=== PATIENT | female | born 1995 | race African-American/Black ===

== ENCOUNTER 2016-08-19 14:54 | Emergency (ER) | payer SELFPAY ==
--- NOTE | 2016-08-19 15:09 | ER Document Report ---
ED Medical Screen (RME) - General Stated Complaint: VAGINAL DISCOMFORT Notes: 21 yo female c/o vaginal discharge, itching x 3 days. TRAVEL OUTSIDE OF THE [place] IN LAST 30 DAYS: No - Related Data Allergies/Adverse Reactions: No Known Allergies Allergy (Verified 04/26/15 11:23) Past Medical History - Immunizations Immunizations up to date: Yes Hx Diphtheria, Pertussis, Tetanus Vaccination: Yes Physical Exam - Vital signs Vitals: Temp Pulse Resp BP Pulse Ox 98.1 F 91 16 128/77 H 100 08/19/16 15:04 08/19/16 15:04 08/19/16 15:04 08/19/16 15:04 08/19/16 15:04 Course - Vital Signs Vital signs: Temp Pulse Resp BP Pulse Ox 98.1 F 91 16 128/77 H 100 08/19/16 15:04 08/19/16 15:04 08/19/16 15:04 08/19/16 15:04 08/19/16 15:04
--- NOTE | 2016-08-19 16:50 | ER Document Report ---
HPI - HPI Patient complains to provider of: vaginal discharge Onset: Other - 3 days Onset/Duration: Gradual Quality of pain: Burning Pain Level: 4 Context: Patient complains of vaginal itching, burning and discharge for the past 3 days. Patient is concerned she may have a vaginal yeast infection. Patient attempted to use [id number] yeast medication 2 days ago without improvement of her symptoms. Patient denies any urinary symptoms. Patient denies any concerns about sexually transmitted infection. Associated Symptoms: Other - Vaginal Discharge Exacerbated by: Denies Relieved by: Denies Similar symptoms previously: Yes Recently seen / treated by doctor: No - ROS ROS below otherwise negative: Yes Systems Reviewed and Negative: Yes All other systems reviewed and negative - CONSTITUTIONAL Constitutional: DENIES: Fever, Chills - GASTROINTESTINAL Gastrointestinal: DENIES: Abdominal Pain, Nausea, Patient vomiting - URINARY Urinary: DENIES: Dysuria - REPRODUCTIVE Reproductive: REPORTS: Abnormal bleeding / discharge. DENIES: : - MUSCULOSKELETAL Musculoskeletal: DENIES: Back Pain - DERM Skin Color: Normal Skin Problems: None Past Medical History - General Information source: Patient Last Menstrual Period: 08/17/2016 - Social History Smoking Status: Never Smoker Chew tobacco use (# tins/day): No Frequency of alcohol use: None Drug Abuse: None Occupation: clinical quality analyst Family History: None, Reviewed & Not Pertinent Patient has suicidal ideation: No Patient has homicidal ideation: No - Medical History Medical History: Negative Renal/ Medical History: Denies: Hx Peritoneal Dialysis Surgical Hx: Negative - Immunizations Immunizations up to date: Yes Hx Diphtheria, Pertussis, Tetanus Vaccination: Yes Vertical Provider Document - CONSTITUTIONAL Agree With Documented VS: Yes Exam Limitations: No Limitations General Appearance: WD/WN, No Apparent Distress - INFECTION CONTROL TRAVEL OUTSIDE OF THE [place] IN LAST 30 DAYS: No - HEENT HEENT: Atraumatic, Normocephalic - NECK Neck: Normal Inspection, Supple - RESPIRATORY Respiratory: Breath Sounds Normal, No Respiratory Distress, Chest Non-Tender O2 Sat by Pulse Oximetry: 100 - CARDIOVASCULAR Cardiovascular: Regular Rate, Regular Rhythm, No Murmur - GI/ABDOMEN Gastrointestinal: Abdomen Soft - REPRODUCTIVE Female Genitalia: negative: CMT, Adnexal Pain-Right, Adnexal Pain-Left Notes: Patient with small amount of vaginal bleeding and white adherent clumps and vaginal vault. When asked if patient has been using anything intravaginally, patient states that she had used an [id number] vaginal yeast cream 2 days ago. - BACK Back: Normal Inspection. negative: CVA Tenderness-Right, CVA Tenderness-Left - MUSCULOSKELETAL/EXTREMETIES Musculoskeletal/Extremeties: DOMITILA KEVIN - NEURO Level of Consciousness: Awake, Alert, Appropriate Motor/Sensory: No Motor Deficit - DERM Integumentary: Warm, Dry, No Rash Course - Vital Signs Vital signs: Temp Pulse Resp BP Pulse Ox 98.1 F 91 16 128/77 H 100 08/19/16 15:04 08/19/16 15:04 08/19/16 15:04 08/19/16 15:04 08/19/16 15:04 - Laboratory Laboratory results interpreted by me: 08/19/16 18:20 Labs- Entire Visit 08/19/16 17:40 Bacteria (Wet Prep) 3+ BACTERIA SEEN Trichomonas (Wet Prep) NO TRICHOMONAS SEEN Vaginal WBC 1+ WBCS SEEN Vaginal RBC 1+ RBCS SEEN Vaginal Yeast YEAST SEEN 08/19/16 19:43 Discharge - Discharge Clinical Impression: Vagina, candidiasis Condition: Stable Disposition: HOME, SELF-CARE Instructions: Vaginal Yeast Infection ([facility]) Additional Instructions: Return immediately for any new or worsening symptoms Followup with your primary care provider, call tomorrow to make a followup appointment Prescriptions: Naproxen [Naprosyn 250 Nmg Tablet] 1 tab PO BID #14 tablet Forms: Return to Work Referrals: [facility] CLAROS MD [Primary Care Provider] - Follow up as needed
[2016-08-19] MEDS ORDERED: FLUCONAZOLE 100 MG TABLET PO ONE (18:18)
[2016-08-19] MEDS ORDERED: IBUPROFEN 800 MG TABLET PO ONE (18:20)
[2016-08-19 19:20] VITALS: BP 120/70
[2016-08-19 19:29] LABS: CHLAM PCR NOT DETECTED (NOT DETECT)
== END 2016-08-19 19:07 | disposition home or self-care (01) ==
LOC: ER 14:54
DX: B37.3 Candidiasis of vulva and vagina (principal)
CPT/HCPCS: 87210; 87491; 87591; 99283

== ENCOUNTER 2016-09-28 18:30 | Emergency (ER) | payer SELFPAY ==
[2016-09-28] MEDS ORDERED: PREDNISONE 20 MG TABLET PO ONE (18:54)
[2016-09-28] MEDS ORDERED: ACETAMINOPHEN 325 MG TABLET PO ONE (18:54)
--- NOTE | 2016-09-28 19:02 | ER Document Report ---
ED Medical Screen (RME) - General Chief Complaint: Sore Throat Stated Complaint: SORE THROAT Mode of Arrival: Ambulatory Information source: Patient Notes: 21-year-old female presents to the emergency department complaining of fever and sore throat over the last 2 days. Reports history of frequent strep throats but usually is not this severe. Denies difficulty breathing, chest pain , nausea or vomiting. I have greeted and performed a rapid initial assessment of this patient. A comprehensive ED assessment and evaluation of the patient, analysis of test results and completion of the medical decision making process will be conducted by additional ED providers. TRAVEL OUTSIDE OF THE [place] IN LAST 30 DAYS: No - Related Data Allergies/Adverse Reactions: No Known Allergies Allergy (Verified 09/28/16 18:56) Past Medical History - Social History Chew tobacco use (# tins/day): No Frequency of alcohol use: Occasional Drug Abuse: None Renal/ Medical History: Denies: Hx Peritoneal Dialysis - Immunizations Immunizations up to date: Yes Hx Diphtheria, Pertussis, Tetanus Vaccination: Yes Physical Exam - Vital signs Vitals: Temp Pulse Resp BP Pulse Ox 103.1 F H 122 H 20 136/82 H 100 09/28/16 18:51 09/28/16 18:51 09/28/16 18:51 09/28/16 18:51 09/28/16 18:51 - HEENT Pharynx: Erythema, Exudate, Tonsillar hypertrophy Course - Vital Signs Vital signs: Temp Pulse Resp BP Pulse Ox 103.1 F H 122 H 20 136/82 H 100 09/28/16 18:51 09/28/16 18:51 09/28/16 18:51 09/28/16 18:51 09/28/16 18:51
[2016-09-28] MEDS ORDERED: DEXAMETHASONE 4 MG TABLET PO ONE (22:22)
[2016-09-28] MEDS ORDERED: LIDOCAINE 2% VISCOUS SOLN 20 ML UDCUP PO ONE (22:22)
--- NOTE | 2016-09-28 22:22 | ER Document Report ---
ED ENT - General Mode of Arrival: Ambulatory Information source: Patient TRAVEL OUTSIDE OF THE [place] IN LAST 30 DAYS: No - HPI Patient complains to provider of: Throat problem Onset: Yesterday Location of pain: Throat Associated symptoms: Other - see above - General Chief Complaint: Sore Throat Stated Complaint: SORE THROAT Notes: 21 year old female with history of strep throat presents to the ED complaining of a sore throat that started yesterday. Patient states that this feels like strep throat, but worse. Patient's father states that she hasn't been resting lately and that could be contributing to her symptoms. Patient is additionally complaining of pain with swallowing, fever, malaise, and rhinorrhea. Patient denies history of mono. (BRIDGET NAVA) - Related Data Allergies/Adverse Reactions: No Known Allergies Allergy (Verified 09/28/16 18:56) Past Medical History - General Information source: Patient - Social History Smoking Status: Never Smoker Chew tobacco use (# tins/day): No Frequency of alcohol use: Occasional Drug Abuse: None Family History: Reviewed & Not Pertinent Patient has suicidal ideation: No Patient has homicidal ideation: No EENT Medical History: Reports: Throat - strep Renal/ Medical History: Denies: Hx Peritoneal Dialysis Surgical Hx: Negative - Immunizations Immunizations up to date: Yes Hx Diphtheria, Pertussis, Tetanus Vaccination: Yes Review of Systems - Review of Systems Constitutional: See HPI, Fever, Malaise EENT: See HPI, Nose discharge, Throat pain, Difficulty swallowing - pain with swallowing Cardiovascular: No symptoms reported Respiratory: No symptoms reported Gastrointestinal: No symptoms reported Genitourinary: No symptoms reported Female Genitourinary: No symptoms reported Musculoskeletal: No symptoms reported Skin: No symptoms reported Hematologic/Lymphatic: No symptoms reported Neurological/Psychological: No symptoms reported -: Yes All other systems reviewed and negative Physical Exam - Vital signs Interpretation: Tachycardic, Febrile - General General appearance: Alert In distress: None - HEENT Head: Normocephalic, Atraumatic Eyes: Normal Extraocular movements intact: Yes Pupils: PERRL Pharynx: Erythema - tonsils, Exudate - tonsils, Other - large erythematous tonsils with exudate. No: Normal - Respiratory Respiratory status: No respiratory distress Breath sounds: Normal - Cardiovascular Rhythm: Regular, Tachycardia Heart sounds: Normal auscultation - Abdominal Inspection: Normal - Back Back: Normal - Extremities General upper extremity: Normal inspection, Normal ROM General lower extremity: Normal inspection, Normal ROM - Neurological Neuro grossly intact: Yes Cognition: Normal Orientation: AAOx4 Shayan Coma Scale Eye Opening: Spontaneous Shayan Coma Scale Verbal: Oriented Shayan Coma Scale Motor: Obeys Commands [place] Coma Scale Total: 15 Speech: Normal - Psychological Associated symptoms: Normal affect, Normal mood - Skin Skin Temperature: Warm Skin Moisture: Dry Skin Color: Normal Course - Re-evaluation Re-evalutation: 09/29/16 Patient with sore throat erythema and exudate. Rapid strep negative. Patient has been very tired. Symptoms consistent with mono. Patient was given steroids , viscous lidocaine, and antipyretics. Given spleen precautions. Stable for discharge home. Taking by mouth. (ROSA CHEN) - Vital Signs Vital signs: Temp Pulse Resp BP Pulse Ox 99.0 F 81 20 118/65 96 09/28/16 22:53 09/28/16 22:53 09/28/16 18:51 09/28/16 22:53 09/28/16 22:55 (BRIDGET NAAV) (ROSA CHEN) Discharge - Discharge Clinical Impression: Sore throat, Mononucleosis Condition: Stable Disposition: HOME, SELF-CARE Instructions: Sore Throat ([facility]), Mononucleosis ([facility]) Prescriptions: Lidocaine HCl [Xylocaine 2% Viscous Soln 20 ml Udcup] 15 ml PO TIDP PRN #1 udc PRN Reason: Forms: Return to School, Return to Work Referrals: [facility] CLAROS MD [Primary Care Provider] - Follow up in 3-5 days Scribe Attestation: 09/29/16 08:17 I personally performed the services described in the documentation, reviewed and edited the documentation which was dictated to the scribe in my presence, and it accurately records my words and actions. (ROSA CHEN) Scribe Documentation - Scribe Written by Aroldoe:: Santa Espino, 09/28/2016 2904 acting as scribe for :: Shavon
[2016-09-28 22:55] VITALS: BP 118/65
== END 2016-09-28 23:00 | disposition home or self-care (01) ==
LOC: ER 18:30
DX: J02.9 Acute pharyngitis, unspecified (principal); B27.90 Infectious mononucleosis, unspecified without complication; R50.9 Fever, unspecified; R53.81 Other malaise; R00.0 Tachycardia, unspecified
CPT/HCPCS: 99283; 87070; 87880; 87804; J3490; J7512

== ENCOUNTER 2016-10-05 14:53 | Emergency (ER) | payer SELFPAY ==
--- NOTE | 2016-10-05 15:13 | ER Document Report ---
ED Medical Screen (RME) - General Stated Complaint: EYE IRRITATION Mode of Arrival: Ambulatory Information source: Patient Notes: 21 y/o F presents to ED c/o right eye redness, itching, drainage, and eyelid swelling. Pt reports wears contact lens but does not sleep with them. I have greeted and performed a rapid initial assessment of this patient. A comprehensive ED assessment and evaluation of the patient, analysis of test results and completion of the medical decision making process will be conducted by additional ED providers. TRAVEL OUTSIDE OF THE [place] IN LAST 30 DAYS: No - Related Data Allergies/Adverse Reactions: No Known Allergies Allergy (Verified 10/05/16 15:11) Past Medical History Renal/ Medical History: Denies: Hx Peritoneal Dialysis - Immunizations Immunizations up to date: Yes Hx Diphtheria, Pertussis, Tetanus Vaccination: Yes Physical Exam - Vital signs Vitals: Temp Pulse Resp BP Pulse Ox 98.2 F 87 16 131/79 H 99 10/05/16 15:08 10/05/16 15:08 10/05/16 15:08 10/05/16 15:08 10/05/16 15:08 - General General appearance: Appears well, Alert In distress: None - Respiratory Respiratory status: No respiratory distress Course - Vital Signs Vital signs: Temp Pulse Resp BP Pulse Ox 98.2 F 87 16 131/79 H 99 10/05/16 15:08 10/05/16 15:08 10/05/16 15:08 10/05/16 15:08 10/05/16 15:08
[2016-10-05] MEDS ORDERED: TETRACAINE HCL 0.5% OPH SOLN 2 ML ONE (16:55)
[2016-10-05] MEDS ORDERED: GENTAMICIN SULFATE 0.3% OPH SOLN 5 ML OD ONE (17:16)
--- NOTE | 2016-10-05 17:16 | ER Document Report ---
ED Eye Complaint - General Chief Complaint: Eye Pain Stated Complaint: EYE IRRITATION Time seen by provider: 17:11 Mode of Arrival: Ambulatory Information source: Patient Notes: 21-year-old female presents with an itchy, irritated right red eye. Patient is a contact lens wearer and she stopped using her contact lens 3 days ago. She states that she has been exposed to someone with pink eye. She's been getting crustiness in the morning. She denies any visual changes. TRAVEL OUTSIDE OF THE [place] IN LAST 30 DAYS: No - HPI Onset: Yesterday Eye location: Right Injury: No Occurred at: Home Quality of pain: No pain, Other Severity: Mild - Itchy Exposure: No: Alkaline chemical, Acidic chemical, Unknown chemical, Direct trauma, Projectile, Broken glass, Conjunctivitis, Welding arc, Tanning [place], Other Safety glasses worn: No Contact lenses worn: Yes Associated symptoms: Itching, Redness - Related Data Allergies/Adverse Reactions: No Known Allergies Allergy (Verified 10/05/16 15:11) Past Medical History - General Information source: Patient - Social History Smoking Status: Never Smoker Cigarette use (# per day): No Chew tobacco use (# tins/day): No Frequency of alcohol use: None Drug Abuse: None Lives with: Family Family History: Reviewed & Not Pertinent Patient has suicidal ideation: No Patient has homicidal ideation: No - Medical History Medical History: Negative Renal/ Medical History: Denies: Hx Peritoneal Dialysis Surgical Hx: Negative - Immunizations Immunizations up to date: Yes Hx Diphtheria, Pertussis, Tetanus Vaccination: Yes Review of Systems - Review of Systems Notes: Review of systems: Constitutional: Denies fever, chills. EENT: Denies ear pain, sinus tenderness, throat pain, throat swelling. See H&P for eye symptoms. Cardiovascular: Denies chest pain, palpitations, dyspnea or edema. Respiratory: Denies wheezing, cough, hemoptysis. Abdomen: Denies abdominal pain, nausea, vomiting, diarrhea. Denies BRBPR or melena. Genitourinary: Denies dysuria, pyuria, hematuria, flank pain. Musculoskeletal: denies joint pain or swelling, denies back pain. Skin: Denies rash, lesions. Physical Exam - Vital signs Vitals: Temp Pulse Resp BP Pulse Ox 98.2 F 87 16 131/79 H 99 10/05/16 15:08 02/27/17 15:08 10/05/16 15:08 10/05/16 15:08 10/05/16 15:08 Interpretation: Normal Notes: Physical exam: GENERAL: 21-year-old female, alert and oriented 3, no acute distress HEAD: Atraumatic, normocephalic. EYES: Right eye: Pupils equally round and reactive to light, right conjunctiva injected. Flourescene: No uptake Anterior chamber: No cells or flare ENT: TMs normal, nares patent, oropharynx clear without exudates. Moist mucous membranes. NECK: Normal range of motion, supple without lymphadenopathy PSYCH: Normal mood, normal affect. SKIN: Warm, Dry, normal turgor, no rashes or lesions noted. - HEENT Visual acuity- Right eye: 20/20 Visual acuity- Left eye: 20/20 Visual acuity- Both eyes: 20/25 Corrective lenses worn: Yes Course - Vital Signs Vital signs: Temp Pulse Resp BP Pulse Ox 98 F 82 18 127/76 H 99 10/05/16 18:05 10/05/16 18:05 10/05/16 18:05 10/05/16 18:05 10/05/16 18:05 Discharge - Discharge Clinical Impression: conjunctivitis Condition: Stable Disposition: HOME, SELF-CARE Instructions: Conjunctivitis ([facility]), Oral Narcotic Medication ([facility]) Additional Instructions: Recommendations: As we discussed: Throat [id number] contacts. Do not wear any new contacts until this infection is healed. Take the gentamicin drops 4 times daily. Take the Percocet as prescribed: See the narcotic instruction sheet. Can use warm soaks to the eye (or you could try cool compresses). Follow-up with your eye doctor: Call the office tomorrow. Return to the emergency room for any worsening redness, changes in vision or any concerns he getting worse. Prescriptions: Oxycodone HCl/Acetaminophen [Percocet 5-325 mg Tablet] 1 - 2 tab PO ASDIR PRN # 15 tablet PRN Reason: Forms: Return to Work Referrals: [facility] CLAROS MD [Primary Care Provider] - Follow up as needed
[2016-10-05] MEDS ORDERED: TETRACAINE HCL 0.5% OPH SOLN 2 ML OD ONE (17:17)
[2016-10-05 18:13] VITALS: BP 127/76
== END 2016-10-05 18:06 | disposition home or self-care (01) ==
LOC: ER 14:53
DX: H10.9 Unspecified conjunctivitis (principal); H57.11 Ocular pain, right eye
CPT/HCPCS: 99283; J3490

== ENCOUNTER 2018-11-06 11:22 | Emergency (ER) | payer MEDICAID ==
--- NOTE | 2018-11-06 12:56 | ER Document Report ---
ED Skin Rash/Insect Bite/Abscs - General Chief Complaint: Rash Stated Complaint: RASH Time Seen by Provider: 11/06/18 12:36 Primary Care Provider: LUH CLAROS MD [ACTIVE STAFF] - Follow up as needed Mode of Arrival: Ambulatory Information source: Patient Notes: 23-year-old female presented to ED for complaint of itchy rash to the right abdomen and back does not cross the midline. It is in a single dermatome. Patient states there is slight pain but not severe. She is currently 20 weeks 5 days . She denies any difficulty or discomfort from the and the she also denies any vaginal bleeding. She is alert oriented respirations regular and unlabored able to speak in full sentences. TRAVEL OUTSIDE OF THE [place] IN LAST 30 DAYS: No - HPI Patient complains to provider of: Skin rash/lesion - Herpetiform vesicular rash to the right abdomen and back Onset: Other - Today Onset/Duration: Gradual Quality of pain: Other - Tender Severity: Mild Pain Level: 2 Skin Character: Vesicular - Herpetiform rash to the right abdomen and back Quality of rash: Itchy, Painful Identify cause: No Exacerbated by: Movement Relieved by: Denies Similar symptoms previously: No Recently seen / treated by doctor: Yes - Related Data Allergies/Adverse Reactions: No Known Allergies Allergy (Verified 10/05/16 15:11) Past Medical History - General Information source: Patient - Social History Smoking Status: Never Smoker Chew tobacco use (# tins/day): No Frequency of alcohol use: None Drug Abuse: None Lives with: Family Family History: Reviewed & Not Pertinent Patient has suicidal ideation: No Patient has homicidal ideation: No - Past Medical History Cardiac Medical History: Reports: None Pulmonary Medical History: Reports: None EENT Medical History: Reports: None Neurological Medical History: Reports: None Endocrine Medical History: Reports: None Renal/ Medical History: Reports: None Malignancy Medical History: Reports: None GI Medical History: Reports: None Musculoskeletal Medical History: Reports None Skin Medical History: Reports None Psychiatric Medical History: Reports: None Traumatic Medical History: Reports: None Infectious Medical History: Reports: None Surgical Hx: Negative Past Surgical History: Reports: None - Immunizations Immunizations up to date: Yes Hx Diphtheria, Pertussis, Tetanus Vaccination: Yes Review of Systems - Review of Systems Constitutional: No symptoms reported EENT: No symptoms reported Cardiovascular: No symptoms reported Respiratory: No symptoms reported Gastrointestinal: No symptoms reported Genitourinary: No symptoms reported Female Genitourinary: No symptoms reported Musculoskeletal: No symptoms reported Skin: Rash - Right abdomen and back single dermatome herpetiform vesicular Hematologic/Lymphatic: No symptoms reported Neurological/Psychological: No symptoms reported Physical Exam - Vital signs Vitals: Temp Pulse Resp BP Pulse Ox 98.7 F 96 16 135/76 H 100 11/06/18 11:25 11/06/18 11:25 11/06/18 11:25 11/06/18 11:25 11/06/18 11:25 Interpretation: Normal - General General appearance: Appears well, Alert - HEENT Head: Normocephalic, Atraumatic Eyes: Normal Pupils: PERRL - Respiratory Respiratory status: No respiratory distress Chest status: Nontender Breath sounds: Normal Chest palpation: Normal - Cardiovascular Rhythm: Regular Heart sounds: Normal auscultation Murmur: No - Abdominal Inspection: Normal Distension: No distension Bowel sounds: Normal Tenderness: Nontender Organomegaly: No organomegaly - Back Back: Normal, Nontender - Extremities General upper extremity: Normal inspection, Nontender, Normal color, Normal ROM, Normal temperature General lower extremity: Normal inspection, Nontender, Normal color, Normal ROM, Normal temperature, Normal weight bearing. No: Ann's sign - Neurological Neuro grossly intact: Yes Cognition: Normal Orientation: AAOx4 Shayan Coma Scale Eye Opening: Spontaneous Shayan Coma Scale Verbal: Oriented [place] Coma Scale Motor: Obeys Commands [place] Coma Scale Total: 15 Speech: Normal Motor strength normal: LUE, RUE, LLE, RLE Sensory: Normal - Psychological Associated symptoms: Normal affect, Normal mood - Skin Skin Temperature: Warm Skin Moisture: Dry Skin Color: Normal Skin irregularity: Rash - Right abdomen and back single dermatome herpetiform vesicular Location of irregularity: Abdomen, Back Character of irregularity: Vesicular Irregularity with: Tenderness - Herpetiform Course - Re-evaluation Re-evalutation: 11/06/18 22:[address] Ledesma to examine the rash due to the fact the patient had minimal pain but it did look like shingles to the right abdomen and back and she is 20 weeks 5 days . we did select rash is shingles and she is patient should be treated appropriately. Patient was started on Valtrex and sent home with prescription for Valtrex instructed to follow-up with her primary doctor and her MEAT BLENDER. Patient was able to verbalize understanding and agreement with treatment plan. - Vital Signs Vital signs: Temp Pulse Resp BP Pulse Ox 98.3 F 89 18 127/72 H 100 11/06/18 12:58 11/06/18 12:58 11/06/18 12:58 11/06/18 12:58 11/06/18 12:58 Discharge - Discharge Clinical Impression: Shingles Qualifiers: Herpes zoster complications: without complications Qualified Code(s): B02.9 - Zoster without complications Condition: Stable Disposition: HOME, SELF-CARE Additional Instructions: Shingles You have shingles. Shingles is caused by the chicken pox virus, The virus has been surviving dormant in a nerve cell since you had chicken pox years ago. The virus has spread down a nerve root to reach the skin. Typically, an band-like area of pain and skin sensitivity develops, then small blisters erupt in the area. Shingles lasts two or three weeks, but sometimes leaves persistent pain. You are contagious -- you can give children chicken pox. But you can't give anyone shingles. Antiviral medicines (such as acyclovir or famciclovir) can help, but the rash usually worsens for about a week. Pain medication is often given if the area hurts. Antihistamines such as Benadryl may be necessary for itching if it does not respond to soda baths and calamine lotion. Sometimes cortisone medicine or nerve-block shots are necessary if pain is severe. If the area remains severely painful as the sores heal, or if you suspect an infection developing in the sores, see your doctor. Valtrex Valtrex is used to treat infections caused by the Herpes family of viruses. It's available as capsules or ointment. Valtrex is most effective if started at the first sign of the viral outbreak. It can decrease the severity and duration of symptoms. However, it doesn't eliminate the virus from the body completely. If you're prone to repeated outbreaks of herpes, you'll continue to have attacks. Apply ointment with a disposable glove or finger-cot to avoid spreading the virus with your finger. If pills have been prescribed, take them for the full recommended course. Occasionally, mild nausea or headaches may occur. Call the doctor if you develop wheezing, itching, rash, shortness of breath, or lightheadedness. Acetaminophen Acetaminophen may be taken for pain relief or fever control. It's much safer than aspirin, offering a wider range of "safe" dosages. It is safe during . Some brand names are Tylenol, Panadol, Datril, Anacin 3, Tempra, and Liquiprin. Acetaminophen can be repeated every four hours. The following are maximum recommended dosages: WEIGHT Dose Drops Elixir Chewable(80mg) (LBS.) drprs=droppers tsp=teaspoon 6 40 mg .4 ml (1/2) 6-11 80 mg .8 ml (full) 1/2 tsp 1 tab 12-16 120 mg 1 1/2 drprs 3/4 tsp 1 1/2 tabs 17-23 160 mg 2 drprs 1 tsp 2 tabs 24-30 240 mg 3 drprs 1 1/2 tsp 3 tabs 30-35 320 mg 2 tsp 4 tabs 36-41 360 mg 2 1/4 tsp 4 1/2 tabs 42-47 400 mg 2 1/2 tsp 5 tabs 48-53 480 mg 3 tsp 6 tabs 54-59 520 mg 3 1/4 tsp 6 1/2 tabs 60-64 560 mg 3 1/2 tsp 7 tabs 65-70 600 mg 3 3/4 tsp 7 1/2 tabs 71-76 640 mg 4 tsp 8 tabs 77-82 720 mg 4 1/2 tsp 9 tabs 83-88 800 mg 5 tsp 10 tabs >89 pounds or adults 650 mg to 900 mg Acetaminophen can be repeated every four hours. Maximum daily dose not to exceed 4000 mg. These maximum recommended dosages are slightly higher than the dosages written on the product container, but these dosages are very safe and well below the toxic dosage for acetaminophen. FOLLOW-UP CARE: If you have been referred to a physician for follow-up care, call the physicians office for an appointment as you were instructed or within the next two days. If you experience worsening or a significant change in your symptoms, notify the physician immediately or return to the Emergency Department at any time for re-evaluation. Prescriptions: Valacyclovir HCl [Valtrex] 1,000 mg PO TID #21 tablet Forms: Elevated Blood Pressure Referrals: LUH CLAROS MD [ACTIVE STAFF] - Follow up as needed
[2018-11-06 13:00] VITALS: BP 127/72
== END 2018-11-06 13:00 | disposition home or self-care (01) ==
LOC: ER 11:22
DX: O98.512 Other viral diseases complicating pregnancy, second trimester (principal); B02.9 Zoster without complications; Z3A.20 20 weeks gestation of pregnancy
CPT/HCPCS: 99282

== ENCOUNTER 2018-11-19 18:15 | Emergency (ER) | payer MEDICAID ==
[2018-11-19 18:28] VITALS: BP 138/74
--- NOTE | 2018-11-19 18:50 | ER Document Report ---
ED Medical Screen (RME) - General Chief Complaint: Vaginal Discharge Stated Complaint: VAGINAL DISCHARGE Time Seen by Provider: 11/19/18 18:45 Primary Care Provider: KAYLIN ESPINAL DO [Primary Care Provider] - Follow up as needed Mode of Arrival: Ambulatory Information source: Patient Notes: Patient is a 23-year-old female who presents the emergency department with chief complaint of dysuria and abnormal vaginal discharge. Patient reports her symptoms started this morning. States she has burning with urination and has thick white discharge. Denies any itching to the area. Denies any concern for STDs. Patient is 22 weeks . Denies any pelvic pain or abdominal pain. Exam: Patient alert, oriented and answering all questions appropriately. Abdomen is soft, gravid and nontender. I have greeted and performed a rapid initial assessment of this patient. A comprehensive ED assessment and evaluation of the patient, analysis of test results and completion of the medical decision making process will be conducted by additional ED providers. Dictation of this chart was performed using voice recognition software; therefore, there may be some unintended grammatical errors. TRAVEL OUTSIDE OF THE [place] IN LAST 30 DAYS: No - Related Data Allergies/Adverse Reactions: No Known Allergies Allergy (Verified 11/19/18 18:23) Past Medical History Renal/ Medical History: Denies: Hx Peritoneal Dialysis - Immunizations Immunizations up to date: Yes Hx Diphtheria, Pertussis, Tetanus Vaccination: Yes Physical Exam - Vital signs Vitals: Temp Pulse Resp BP Pulse Ox 98.6 F 89 18 138/74 H 99 11/19/18 18:27 11/19/18 18:27 11/19/18 18:27 11/19/18 18:27 11/19/18 18:27 Course - Vital Signs Vital signs: Temp Pulse Resp BP Pulse Ox 98.6 F 89 18 138/74 H 99 11/19/18 18:27 11/19/18 18:27 11/19/18 18:27 11/19/18 18:27 11/19/18 18:27 Doctor's Discharge - Discharge Referrals: KAYLIN ESPINAL DO [Primary Care Provider] - Follow up as needed
[2018-11-19 19:14] LABS: BACTERIA (WET MOUNT) 4+ BACTERIA SEEN; EPITHELIALS (WET MOUNT) 3+ EPITHELIALS SEEN; T.VAGINALIS (WET MOUNT) NO TRICHOMONAS SEEN; WBCS (WET MOUNT) 4+ WBCS SEEN; YEAST (WET MOUNT) NO YEAST SEEN
[2018-11-19 19:27] LABS: APPEARANCE,URINE CLOUDY; BILIRUBIN,URINE NEGATIVE (NEGATIVE); COLOR,URINE YELLOW; GLUCOSE, URINE NEGATIVE (NEGATIVE); KETONES,URINE NEGATIVE (NEGATIVE); LEUKOCYTE ESTERASE,URINE TRACE (NEGATIVE); NITRITE,URINE NEGATIVE (NEGATIVE); PROTEIN,URINE NEGATIVE (NEGATIVE); URINE SPECIFIC GRAVITY 1.024
--- NOTE | 2018-11-19 19:44 | ER Document Report ---
ED General - General Chief Complaint: Vaginal Discharge Stated Complaint: VAGINAL DISCHARGE Time Seen by Provider: 11/19/18 18:45 Primary Care Provider: KAYLIN ESPINAL DO [NO LOCAL MD] - Follow up as needed Mode of Arrival: Ambulatory Information source: Patient TRAVEL OUTSIDE OF THE [place] IN LAST 30 DAYS: No - HPI Patient complains to provider of: Dysuria, white vaginal discharge Onset: This morning Onset/Duration: Persistent Quality of pain: No pain Severity: None Context: 22 weeks Associated symptoms: denies: Chills, Diarrhea, Fever, Nausea, Vomiting Exacerbated by: Denies Relieved by: Denies Similar symptoms previously: No Recently seen / treated by doctor: No Notes: 23-year-old -[place] female coming in today with dysuria and white vaginal discharge. Symptoms started this morning. Patient is 22 weeks . She has not had any history of STDs in the past. So far in her none of her STD screens have been positive. She does not believe that she has any STDs nor risk factors for such. She is also not complaining of any vaginal bleeding - Related Data Allergies/Adverse Reactions: No Known Allergies Allergy (Verified 11/19/18 18:23) Past Medical History - General Information source: Patient - Social History Smoking Status: Current Some Day Smoker Family History: Reviewed & Not Pertinent Patient has suicidal ideation: No Patient has homicidal ideation: No Renal/ Medical History: Denies: Hx Peritoneal Dialysis - Immunizations Immunizations up to date: Yes Hx Diphtheria, Pertussis, Tetanus Vaccination: Yes Review of Systems - Review of Systems Notes: Constitutional: No fevers. No chills. EENT: No eye redness. No eye pain. No ear pain. No sore throat. Cardiovascular: No chest pain. No palpitations. Respiratory: No cough. No shortness of breath. No respiratory distress. Gastrointestinal: No abdominal pain. No nausea, vomiting, or diarrhea. Genitourinary: Atraumatic. No lesions. No pain. Positive for vaginal discharge. Negative for vaginal bleeding. Negative for pelvic cramping Musculoskeletal: Atraumatic. No swelling. No deformities. Skin: No rash or lesions. Lymphatic: No swollen lymph nodes. Neurologic: No headache. No syncope. Psychiatric: No suicidal or homicidal ideation. Physical Exam - Vital signs Vitals: Temp Pulse Resp BP Pulse Ox 98.6 F 89 18 138/74 H 99 11/19/18 18:27 11/19/18 18:27 11/19/18 18:27 11/19/18 18:27 11/19/18 18:27 - Notes Notes: General: Well-developed, well-nourished. In no acute distress. Non-toxic appearing. Cardiac: Well-perfused. Regular rate and rhythm. No murmurs, rubs, or gallops. Pulmonary: No respiratory distress. No cyanosis. Bilateral lung fiels are clear to auscultation. Abdominal: Non-distended. Non-rigid. Bowels sounds are present in all four quadrants. No guarding or rebound. There is no CVA tenderness. HEENT: Head is atraumatic. Conjunctivae not reddened. No tearing. PERRL. EOMI. Orbits atraumatic. No periorbital swelling or erythema. Oropharynx is without erythema, swelling, or exudates. Neck: Supple. No adenopathy. No meningismus. Dermatologic: Warm with good turgor. No rash. Atraumatic. Chest: Atraumatic. No chest wall tenderness to palpation. Musculoskeletal: Moves all extremities well. No range of motion deficits. no muscular or joint tenderness. No paraspinal muscle tenderness. no midline spinal tenderness or step-off. Genitourinary: Examination deferred per patient request Neurologic: No gross neurologic deficits. Psychiatric: Normal mood. Course - Re-evaluation Re-evalutation: 11/19/18 19:43 Patient's wet mount is consistent with BV. No trichomoniasis or yeast. We will start her on Flagyl. - Vital Signs Vital signs: Temp Pulse Resp BP Pulse Ox 98.6 F 89 18 138/74 H 99 11/19/18 18:27 11/19/18 18:27 11/19/18 18:27 11/19/18 18:27 11/19/18 18:27 - Laboratory Laboratory results interpreted by wy: 11/19/18 18:30 Urine Urobilinogen 4.0 H Ur Leukocyte Esterase TRACE H Urine Ascorbic Acid 40 H Discharge - Discharge Clinical Impression: Bacterial vaginosis Condition: Good Disposition: HOME, SELF-CARE Instructions: Vaginosis, Bacterial ([facility]) Prescriptions: Metronidazole [Flagyl 500 mg Tablet] 500 mg PO TID #21 tablet Referrals: KAYLIN ESPINAL DO [NO LOCAL MD] - Follow up as needed OB, YOUR [Other] - Follow up as needed
[2018-11-19 20:43] LABS: CHLAM PCR NOT DETECTED (NOT DETECT); GON PCR NOT DETECTED (NOT DETECT)
== END 2018-11-19 19:54 | disposition home or self-care (01) ==
LOC: ER 18:15
DX: O23.592 Infection of other part of genital tract in pregnancy, second trimester (principal); B96.89 Other specified bacterial agents as the cause of diseases classified elsewhere; O99.332 Smoking (tobacco) complicating pregnancy, second trimester; Z3A.22 22 weeks gestation of pregnancy
CPT/HCPCS: 81001; 87086; 87088; 87186; 87210; 87491; 87591; 99283

== ENCOUNTER 2019-03-18 21:56 | Outpatient (CLI) | payer MEDICAID ==
[2019-03-18 22:32] LABS: APPEARANCE,URINE SLIGHTLY-CLOUDY; BILIRUBIN,URINE NEGATIVE (NEGATIVE); COLOR,URINE YELLOW; GLUCOSE, URINE NEGATIVE (NEGATIVE); KETONES,URINE NEGATIVE (NEGATIVE); LEUKOCYTE ESTERASE,URINE TRACE (NEGATIVE); NITRITE,URINE NEGATIVE (NEGATIVE); PROTEIN,URINE 30 mg/dL (NEGATIVE); URINE SPECIFIC GRAVITY 1.025
[2019-03-18 23:04] LABS: URINE AMPHETAMINES SCREEN NEGATIVE; URINE BARBITURATES SCREEN NEGATIVE; URINE BENZODIAZEPINES SCREEN NEGATIVE; URINE COCAINE SCREEN NEGATIVE; URINE MARIJUANA (THC) SCREEN NEGATIVE; URINE METHADONE SCREEN NEGATIVE; URINE PHENCYCLIDINE SCREEN NEGATIVE
--- NOTE | 2019-03-18 23:42 | Non Stress Test Report ---
Non Stress Test Datetime Report Generated by CPN: 03/18/2019 23:41 DEMOGRAPHIC EGA NST: 39.4 INDICATION Indication for Study: Other Indication for Study (NST) Other: LC MONITORING Monitor Explained: Monitor Explained; Test Explained; Patient Verbalized Understanding Monitor Explained Other: 98 Time on Monitor: 03/18/2019 22:11 Time off Monitor: 03/18/2019 23:30 NST Duration: 79 NST INTERVENTIONS NST Interventions: PO Hydration BABY A: [id number] BABY A Movement : Present Contraction Frequency : 6-8 FHR Baseline : 140 Accelerations : 15X15 Decelerations : None Variability : Moderate 6-25bpm NST Review: Meets Criteria for Reactive NST NST Review and Verified By : B. Ring RN NST Results: Reactive NST REPORT Report Trigger: Send Report
== END 2019-03-18 23:37 | disposition home or self-care (01) ==
LOC: LC 21:56
PROVIDERS: ATTEND Obstetrics & Gynecology
PROC: 4A1HXCZ Monitoring of Products of Conception, Cardiac Rate, External Approach (ICD-10-PCS; principal; 2019-03-18)
DX: O47.1 False labor at or after 37 completed weeks of gestation (principal); Z3A.37 37 weeks gestation of pregnancy
CPT/HCPCS: 80307; 81005

== ENCOUNTER 2019-03-20 07:22 | Outpatient (CLI) | payer MEDICAID ==
[2019-03-20 08:00] LABS: APPEARANCE,URINE SLIGHTLY-CLOUDY; BILIRUBIN,URINE NEGATIVE (NEGATIVE); COLOR,URINE YELLOW; GLUCOSE, URINE NEGATIVE (NEGATIVE); KETONES,URINE TRACE mg/dL (NEGATIVE); LEUKOCYTE ESTERASE,URINE SMALL (NEGATIVE); NITRITE,URINE NEGATIVE (NEGATIVE); PROTEIN,URINE NEGATIVE (NEGATIVE); URINE SPECIFIC GRAVITY 1.016; UROBILINOGEN,URINE NEGATIVE mg/dL (<2.0)
[2019-03-20 08:18] LABS: URINE AMPHETAMINES SCREEN NEGATIVE; URINE BENZODIAZEPINES SCREEN NEGATIVE; URINE COCAINE SCREEN NEGATIVE; URINE MARIJUANA (THC) SCREEN NEGATIVE; URINE METHADONE SCREEN NEGATIVE; URINE PHENCYCLIDINE SCREEN NEGATIVE
[2019-03-20 08:19] LABS: URINE BARBITURATES SCREEN NEGATIVE
[2019-03-20] MEDS ORDERED: HYDROXYZINE PAMOATE 50 MG CAPSULE ONE (09:22)
--- NOTE | 2019-03-20 09:40 | Non Stress Test Report ---
Non Stress Test Datetime Report Generated by CPN: 03/20/2019 09:39 DEMOGRAPHIC EGA NST: 39.6 INDICATION Indication for Study: Ordered by Provider; Other Indication for Study (NST) Other: labor check MONITORING Monitor Explained: Monitor Explained; Test Explained; Patient Verbalized Understanding Monitor Explained: Monitor Explained; Test Explained; Patient Verbalized Understanding Time on Monitor: 03/20/2019 08:08 Time off Monitor: 03/20/2019 09:18 NST Duration: 70 NST INTERVENTIONS Physician Notified NST: N Childers CNM BABY A: [id number] BABY A Movement : Present Contraction Frequency : 9-10 FHR Baseline : 140 Accelerations : 15X15 Decelerations : None Variability : Moderate 6-25bpm NST Review: Meets Criteria for Reactive NST NST Review and Verified By : VU Vanegas Results: Reactive NST REPORT Report Trigger: Send Report
== END 2019-03-20 09:30 | disposition home or self-care (01) ==
LOC: LC 07:22
PROVIDERS: ATTEND Obstetrics & Gynecology
PROC: 4A1HXCZ Monitoring of Products of Conception, Cardiac Rate, External Approach (ICD-10-PCS; principal; 2019-03-20)
DX: O47.1 False labor at or after 37 completed weeks of gestation (principal); Z3A.39 39 weeks gestation of pregnancy
CPT/HCPCS: 59025; 81005; 80307; J3490

== ENCOUNTER 2019-03-21 05:23 | Inpatient (IN) | payer MEDICAID ==
[2019-03-21] MEDS ORDERED: OXYTOCIN/NORMAL SALINE 0 UNIT/0 ML RTUINJ ONE (05:57)
[2019-03-21] MEDS ORDERED: MISOPROSTOL 0.2 MG TABLET ONE (05:57)
[2019-03-21] MEDS ORDERED: LIDOCAINE 1% INJ-PF (10 MG/ML) 30 ML SDV ONE (05:57)
[2019-03-21] MEDS ORDERED: PENICILLIN G-K 5 MILLION UNIT VIAL ONE ×3 (05:59→16:01)
[2019-03-21] MEDS ORDERED: PENICILLIN G POTASSIUM 5,000,000 UNIT in DEXTROSE 5%-WATER 100 ML IV ONE (06:03)
[2019-03-21] MEDS ORDERED: RINGERS SOLUTION,LACTATED 1,000 ML IV ONE (06:03)
[2019-03-21 06:44] LABS: ABSOLUTE BASOPHILS # (AUTO) 0.1 10^3/uL (0.0-0.2); ABSOLUTE EOSINOPHILS # (AUTO) 0.1 10^3/uL (0.0-0.6); ABSOLUTE LYMPHOCYTES (AUTO) 1.9 10^3/uL (0.5-4.7); ABSOLUTE NEUT (AUTO) 6.9 10^3/uL (1.7-8.2); BASOPHILS % (AUTO) 0.6 % (0-2); EOSINOPHILS % (AUTO) 0.9 % (0-6); HEMATOCRIT 35.5 % (36.0-47.0); HEMOGLOBIN 11.5 g/dL (12.0-15.5); LYMPHOCYTES % (AUTO) 19.2 % (13-45); MEAN CORPUSCULAR HEMOGLOBIN 25.8 pg (27.0-33.4); MEAN CORPUSCULAR HGB CONC 32.3 g/dL (32.0-36.0); MEAN CORPUSCULAR VOLUME 80 fl (80-97); PLATELET COUNT 272 10^3/uL (150-450); RED BLOOD COUNT 4.45 10^6/uL (3.72-5.28); RED CELL DISTRIBUTION WIDTH 14.3 % (11.5-14.0); SEGMENTED NEUTROPHILS % (AUTO) 69.3 % (42-78); TOTAL CELLS COUNTED % (AUTO) 100 %; WHITE BLOOD COUNT 9.9 10^3/uL (4.0-10.5)
[2019-03-21 06:58] LABS: APPEARANCE,URINE CLEAR; BILIRUBIN,URINE NEGATIVE (NEGATIVE); COLOR,URINE YELLOW; GLUCOSE, URINE NEGATIVE (NEGATIVE); KETONES,URINE NEGATIVE (NEGATIVE); LEUKOCYTE ESTERASE,URINE NEGATIVE (NEGATIVE); NITRITE,URINE NEGATIVE (NEGATIVE); PROTEIN,URINE NEGATIVE (NEGATIVE); URINE SPECIFIC GRAVITY 1.016
[2019-03-21 07:04] LABS: ALBUMIN 3.3 g/dL (3.5-5.0); ALKALINE PHOSPHATASE 107 U/L (38-126); ANION GAP 8 (5-19); ASPARTATE AMINO TRANSFERASE 23 U/L (14-36); BILIRUBIN,DIRECT 0.2 mg/dL (0.0-0.4); BILIRUBIN,TOTAL 0.3 mg/dL (0.2-1.3); BLOOD UREA NITROGEN 8 mg/dL (7-20); CALCIUM 9.1 mg/dL (8.4-10.2); CARBON DIOXIDE 22 mmol/L (22-30); CHLORIDE 107 mmol/L (98-107); GLUCOSE 72 mg/dL (75-110); POTASSIUM 3.8 mmol/L (3.6-5.0); TOTAL PROTEIN 6.5 g/dL (6.3-8.2); URIC ACID 4.1 mg/dL (2.5-6.2)
[2019-03-21 07:13] LABS: URINE AMPHETAMINES SCREEN NEGATIVE; URINE BARBITURATES SCREEN NEGATIVE; URINE BENZODIAZEPINES SCREEN NEGATIVE; URINE COCAINE SCREEN NEGATIVE; URINE MARIJUANA (THC) SCREEN NEGATIVE; URINE METHADONE SCREEN NEGATIVE; URINE PHENCYCLIDINE SCREEN NEGATIVE
[2019-03-21 07:37] LABS: UR PRO/CREAT RATIO RESULT 0.2 mg/mg (0.0-0.2); URINE CREATININE 89.3 mg/dL (16-327); URINE PROTEIN 20.7 mg/dL (<12)
[2019-03-21] MEDS ORDERED: FENTANYL/BUPIVACAINE/NS/PF 300 MCG/150 ML RTUINJ EPI ONE (07:50)
[2019-03-21] MEDS ORDERED: BUPIVACAINE HCL 0.25 % INJ/PF (2.5 MG/1 ML) 30 ML VIAL ONE (07:50)
[2019-03-21] MEDS ORDERED: PHENYLEPHRINE HCL INJ/PF 10 MG/1 ML SDV ONE ×2 (07:50→18:32)
[2019-03-21] MEDS ORDERED: EPHEDRINE SULFATE INJ 50 MG/1 ML AMPULE ONE (07:50)
[2019-03-21] MEDS ORDERED: FENTANYL CITRATE INJ/PF 100 MCG/2 ML AMPUL ONE ×4 (07:50→20:15)
--- NOTE | 2019-03-21 08:39 | Admission Physical ---
Datetime Report Generated by CPN: 03/21/2019 08:39 CURRENT ADMISSION Hx Assessment: The History has been Reviewed and is Current Chief Complaint: Uterine Contractions; Suspected Ruptured Membranes Indication for Induction: Not Applicable Admit Impression : Term, Intrauterine Admit Plan: Admit to Unit; Initiate Labor Protocol ALLERGIES Medication Allergies: No Medication Allergies: No Known Allergies (03/20/2019) Latex: No Latex Allergies OBSTETRICAL HISTORY EDC: 03/21/2019 00:00 : 1 Para: 0 Ectopic: 0 Cesareans: 0 VBACs: 0 Multiple Births: 0 Gestational Diabetes: No Rh Sensitization: No Incompetent Cervix: No IDALIA: No Infertility: No ART Treatment: No Uterine Anomaly: No IUGR: No Hx Previous C/S: No Macrosomia: No Hx Loss/Stillborn: No PIH: No Hx : No Placenta Previa/Abruption: No Depression/PP Depression: No PTL/PROM: No Post Hemorrhage: No Current Procedures: Ultrasound; NST SEE RECORDS Alcohol: No Marijuana : No Cocaine: No Other Illicit Drugs: No Cigarettes: Never Smoker. [id number] MEDICAL HISTORY Diabetes: No Blood Transfusion: No Pulmonary Disease (Asthma, TB): No Breast Disease: No Hypertension: No Contact Center Specialist Surgery: No Heart Disease: No Hosp/Surgery: No Autoimmune Disorder: No Anesthetic Complications: No Kidney Disease: No Abnormal Pap Smear: No Neuro/Epilepsy: No Psychiatric Disorders: No Other Medical Diseases: No Hepatitis/Liver Disease: No Significant Family History: No Varicosities/Phlebitis: No Trauma/Violence : No Thyroid Dysfunction: No INFECTIOUS HISTORY Gonorrhea: No Genital Herpes: No Chlamydia: No Tuberculosis: No Syphilis: No Hepatitis: No HIV/AIDS Exposure: No Rash or Viral Illness: No HPV: No PHYSICAL EXAM General: Normal HEENT: Normal Neurologic: Normal Thyroid: Deferred Heart: Normal Lungs: Normal Breast: Deferred Back: Normal Abdomen: Normal Genitourinary Exam: Normal Extremities: Normal DTRs: Normal Pelvic Type: Adequate Physical Exam Comments: + GBS High weight gain in [place]BR[place]ES Membranes: Ruptured FETUS A EGA: 40.0 Monitoring: External US Admit Comment: Admitted to LD with SROM, and irreg uc's, + GBS, desires epidural, 75# weight gain G1 PLANS FOR LABOR AND DELIVERY Labor and Delivery: None Pain Management: Medications; Epidural Feeding Preference: Breast Benefit of Breast Feed Discussed: Yes Circumcision: N/A INFORMED CONSENT Assignment: Kenny Cao MD Signature: with User ID: Melanie : with User ID: [email or web address]
[2019-03-21] MEDS: PENICILLIN G POTASSIUM 2,500,000 UNIT in DEXTROSE 5%-WATER 50 ML IV SCH ×4 (10:57→23:17)
[2019-03-21] MEDS ORDERED: OXYTOCIN/NORMAL SALINE 20 UNIT/1,000 ML RTUINJ IV PRN ×2 (12:40→17:58)
[2019-03-21] MEDS ORDERED: DIPH/PERTUSS(ACELL)/TETANUS VAC/PF 0.5 ML SYR (>=10YO) IM PRN (17:58)
[2019-03-21] MEDS ORDERED: OXYCODONE-ACETAMINOPHEN 5-325 MG TABLET PO PRN (17:58)
[2019-03-21] MEDS ORDERED: ACETAMINOPHEN 325 MG TABLET PO PRN (17:58)
[2019-03-21] MEDS ORDERED: RINGERS SOLUTION,LACTATED 1,000 ML IV PRN (17:58)
[2019-03-21] MEDS ORDERED: MEASLES,MUMPS&RUBELLA VACC/PF 0.5 ML VIAL SUBCUT PRN (17:58)
[2019-03-21] MEDS ORDERED: ACETAMINOPHEN 1,000 MG/100 ML RTUPB IV PRN (17:58)
[2019-03-21] MEDS ORDERED: PROMETHAZINE HCL INJ 25 MG/1 ML VIAL IV PRN (17:58)
[2019-03-21] MEDS ORDERED: CITRIC ACID/SODIUM CITRATE ORAL SOLN 15 ML UDCUP ONE (17:59)
[2019-03-21] MEDS ORDERED: LIDOCAINE 2% INJ-PF (20 MG/ML) 10 ML AMPUL ONE ×3 (17:59→19:48)
[2019-03-21] MEDS ORDERED: CEFAZOLIN 1 GM/D5W RTU 2 GM/100 ML RTUPB IV ONE (17:59)
[2019-03-21] MEDS ORDERED: OXYTOCIN 10 UNIT/ML VIAL ONE (18:32)
[2019-03-21] MEDS ORDERED: MIDAZOLAM 2 MG/2 ML INJ ONE ×2 (18:32→19:43)
[2019-03-21] MEDS ORDERED: ONDANSETRON HCL INJ/PF 4 MG/2 ML SDV ONE (18:32)
[2019-03-21] MEDS ORDERED: MORPHINE SULFATE 10 MG/ML INJ ONE ×2 (19:47→20:20)
[2019-03-21] MEDS ORDERED: PROPOFOL INJ 200 MG/20 ML VIAL IV ONE (19:47)
[2019-03-21] MEDS ORDERED: ACETAMINOPHEN 1,000 MG/100 ML RTUPB IV ONE (20:15)
--- NOTE | 2019-03-21 20:15 | Operative Report ---
Operative Report DATE OF SURGERY: 03/21/19 PREOPERATIVE DIAGNOSIS: Arrest of dilatation POSTOPERATIVE DIAGNOSIS: Same plus persistent occiput posterior and macrosomia OPERATION: Primary via low transverse uterine incision SURGEON: ALLY TAPIA ANESTHESIA: Epidural TISSUE REMOVED OR ALTERED: Placenta COMPLICATIONS: None ESTIMATED BLOOD LOSS: 400 cc INTRAOPERATIVE FINDINGS: Viable female directly OP, normal uterus tubes and ovaries PROCEDURE: Patient was taken to the OR and placed in supine position after her spinal anesthesia. She is prepared and draped in sterile fashion. Holm was placed for drainage of the bladder. Low transverse incision was made and carried down the level of the fascia. The fascial incision was made with knife and extended bilaterally with curved Grimes scissors. The fascia was off the rectus muscles using sharp and blunt dissection. The rectus muscles are in the midline. The peritoneum was entered without incident. Bladder blade was placed in uterine segment was identified. A low transverse incision was made creating a bladder flap. Bladder blade was placed low transverse uterine incision was made with the knife and extended with fingertips. The baby was delivered with some fundal pressure. Mouth and nose were suctioned free. The cord is doubly clamped and cut. Baby is passed off to the silver solderer in attendance. The placenta was manually extracted with trailing membranes. The uterus was externalized wrapped in a moist lap sponge. Uterine contents wiped free. Uterus was closed with a running locking layer of 0 chromic suture using the second layer to imbricate the first completing a double layer closure of the uterus. The serosa was closed with a running 2-0 chromic stitch. The pelvis was irrigated and suctioned free of fluid the uterus was replaced in the abdomen. The abdominal wall peritoneum was closed with running 2-0 chromic stitch. Fascia was closed with a running 0 Vicryl in 2 segments. Kayleigh's layer was brought together with 0 plain gut stitch and the skin was closed with running subcuticular 4-0 undyed Vicryl stitch. The wound was dressed mother and baby did well.
[2019-03-21] MEDS ORDERED: OXYTOCIN/NORMAL SALINE 20 UNIT/1,000 ML RTUINJ ONE (20:21)
[2019-03-21] MEDS ORDERED: HYDRALAZINE HCL INJ/PF 20 MG/1 ML SDV IV ONE ×2 (20:33→20:56)
[2019-03-21] MEDS ORDERED: HYDRALAZINE HCL INJ/PF 20 MG/1 ML SDV ONE (20:35)
[2019-03-21] MEDS ORDERED: LABETALOL HCL INJ 20 MG/4 ML DISP.SYRIN IV ONE ×2 (21:32)
[2019-03-21] MEDS ORDERED: HYDROMORPHONE HCL INJ/PF 2 MG/ML AMPULE ONE ×2 (21:33→22:05)
[2019-03-21] MEDS: HYDROMORPHONE HCL INJ/PF 2 MG/ML AMPULE IV PRN ×2 (21:35→21:43)
[2019-03-21] MEDS: IBUPROFEN 800 MG TABLET PO SCH (21:42)
[2019-03-21] MEDS: DOCUSATE SODIUM 100 MG CAPSULE PO SCH (21:42)
[2019-03-21] MEDS ORDERED: KETOROLAC TROMETHAMINE INJ/PF 30 MG/1 ML SDV ONE (21:43)
[2019-03-21] MEDS: KETOROLAC TROMETHAMINE INJ/PF 30 MG/1 ML SDV IV SCH (21:43)
--- NOTE | 2019-03-21 21:50 | Delivery Summary ---
Del Sum A-C Datetime Report Generated by CPN: 03/21/2019 21:49 DELIVERY PERSONNEL DELIVERY PERSONNEL: [id number] Delivery Doctor:: Kenny Cao MD Anesthesiologist:: France Gallagher MD SALES AND CATERING COORDINATOR:: Evaristo Dela Cruz CRNA Labor and Delivery Nurse:: Rylie Carty RNbreast buffer Nurse:: Tala Landin RN Assembly Technician:: Rylie Carty RN Glass Calibrator:: Dr. Moody Spicer Nursery Nurse:: Faiza Muir RN Multimedia Coordinator/ASSOCIATE VICE PRESIDENT: ST Linette Multimedia Coordinator/ASSOCIATE VICE PRESIDENT: Kellen Evert, ST MATERNAL INFORMATION Delivery Anesthesia: Epidural Medications After Delivery: Pitocin Bolus-Please Comment; Pitocin Drip 20 Units/1000ml NSS Meds After Delivery Comment: Pitocin 20 units in 1 L NS bolusing per order Maternal Complications: None LABOR SUMMARY EDC: 03/21/2019 00:00 No. Babies in Womb: 1 Attempted: No Labor Anesthesia: Epidural LABOR INFORMATION Reason for Induction: Not Applicable Onset of Labor: 03/21/2019 05:00 Complete Dilatation: 03/21/2019 13:25 Oxytocin: N/A Group B Beta Strep: positive Antibiotics # of Doses: 3 Antibiotics Time of Last Dose: 1611 Name of Antibiotic Given: Penicillin G potassium Steroids Given: None Reason Steroids Not Administered: Not Applicable MEMBRANES Membranes Rupture Method: Spontaneous Rupture of Membranes: 03/21/2019 05:00 Length of Rupture (hr): 14.58 Amniotic Fluid Color: Clear Amniotic Fluid Amount: Moderate Amniotic Fluid Odor: Normal STAGES OF LABOR Stage 1 hr: 8 Stage 1 min: 25 Stage 2 hr: 6 Stage 2 min: 10 Stage 3 hr: 0 Stage 3 min: 0 Total Time in Labor hr: 14 Total Time in Labor min: 35 VAGINAL DELIVERY Episiotomy: None Laceration #1: None Laceration Extension #1: N/A Laceration Repair: Not Applicable Sponge Count Correct: N/A Sharps Count Correct: N/A CSECTION DELIVERY Primary Indication: Failure of Descent CSection Urgency: Non-Scheduled CSection Incidence: Primary Labor: Labor CSection Incision: Lower Uterine Transverse BABY A INFORMATION Delivery Date/Time: 03/21/2019 19:35 Method of Delivery: Born in Route : No : N/A Forceps: N/A Vacuum Extraction: N/A Shoulder Dystocia : No PRESENTATION/POSITION BABY A Presentation: Cephalic Cephalic Presentation: Vertex Vertex Position: Direct OP Breech Presentation: N/A PLACENTA INFORMATION BABY A Placenta Delivery Time : 03/21/2019 19:35 Placenta Method of Delivery: Manual Removal Placenta Status: Delivered SCORES BABY A Heart Rate 1 min: >100 bpm Resp Effort 1 min: Good Cry Reflex Irritability 1 min: Cough or Sneeze or Pulls Away Muscle Tone 1 min: Active Motion Color 1 min: Blue/Pale SCORE 1 MIN: 8 Heart Rate 5 min: >100 bpm Resp Effort 5 min: Good Cry Reflex Irritability 5 min: Cough or Sneeze or Pulls Away Muscle Tone 5 min: Active Motion Color 5 min: Body Kirby, Extremities Blue SCORE 5 MIN: 9 INFORMATION BABY A Gestational Age at Delivery: 40.0 Gestational Status: Full Term- 39- 40.6 Weeks Outcome : Liveborn Condition : Stable Sex: Female IDENTIFICATION BABY A Verification Date/Time: 03/21/2019 20:38 ID Band Number: [id number] Mother's Name Verified: Yes RN Verifying : Fabiano Hammk, RN and C. Landin, RN WEIGHT/LENGTH BABY A Infant Birthweight (gm): 4425 Weight (lb): 9 Weight (oz): 12 Length (in): 22.50 Length (cm): 57.15 CORD INFORMATION BABY A No. Cord Vessels: 3 Nuchal Cord : N/A Cord Blood Taken: Yes-For Storage (Mom's Blood type +) Infant Suction: Mouth; Nose ASSESSMENT BABY A Skin to Skin: Yes Skin to Skin Time (min): 60 BABY B INFORMATION : N/A
[2019-03-21] MEDS ORDERED: AMPICILLIN SOD/SULBACTAM 3 GM VIAL ONE (22:32)
[2019-03-21] MEDS ORDERED: MAGNESIUM SULFATE 20 GM/500 ML RTUINJ IV ONE (22:32)
[2019-03-21] MEDS ORDERED: MAGNESIUM SULFATE 20 GM/500 ML RTUINJ IV PRN (22:44)
[2019-03-21] MEDS ORDERED: AMPICILLIN SOD/SULBACTAM 3 GM VIAL IV SCH (23:00)
[2019-03-22] MEDS: IBUPROFEN 800 MG TABLET PO SCH ×6 (00:56→23:09)
[2019-03-22] MEDS ORDERED: HYDROMORPHONE HCL INJ/PF 2 MG/ML AMPULE ONE ×2 (03:09→09:43)
[2019-03-22] MEDS: HYDROMORPHONE HCL INJ/PF 2 MG/ML AMPULE IV PRN ×2 (03:11→09:46)
[2019-03-22] MEDS ORDERED: AMPICILLIN SOD/SULBACTAM 3 GM VIAL IV PRN (04:00)
[2019-03-22] MEDS ORDERED: KETOROLAC TROMETHAMINE INJ/PF 30 MG/1 ML SDV ONE ×2 (05:28→13:54)
[2019-03-22] MEDS ORDERED: AMPICILLIN SOD/SULBACTAM 3 GM VIAL ONE ×2 (05:29→23:12)
[2019-03-22] MEDS: AMPICILLIN SODIUM/SULBACTAM NA 3 GM in NORMAL SALINE 100 ML IV SCH ×2 (06:12→13:56)
[2019-03-22] MEDS: KETOROLAC TROMETHAMINE INJ/PF 30 MG/1 ML SDV IV SCH ×2 (06:13→13:56)
[2019-03-22 07:27] LABS: HEMATOCRIT 30.4 % (36.0-47.0); HEMOGLOBIN 9.9 g/dL (12.0-15.5); MEAN CORPUSCULAR HEMOGLOBIN 26.1 pg (27.0-33.4); MEAN CORPUSCULAR HGB CONC 32.6 g/dL (32.0-36.0); MEAN CORPUSCULAR VOLUME 80 fl (80-97); PLATELET COUNT 230 10^3/uL (150-450); RED CELL DISTRIBUTION WIDTH 14.6 % (11.5-14.0)
[2019-03-22] MEDS ORDERED: DOCUSATE SODIUM 100 MG CAPSULE ONE (09:43)
[2019-03-22] MEDS ORDERED: PRENATAL VITAMIN W DHA CAPSULE PO ONE (09:43)
[2019-03-22] MEDS: PRENATAL VITAMIN W DHA CAPSULE PO SCH (09:46)
[2019-03-22] MEDS: DOCUSATE SODIUM 100 MG CAPSULE PO SCH ×2 (09:47→17:48)
[2019-03-22] MEDS ORDERED: FUROSEMIDE INJ/PF 20 MG/2 ML SDV IV ONE (13:24)
[2019-03-22] MEDS ORDERED: FUROSEMIDE INJ/PF 40 MG/4 ML SDV ONE (13:36)
[2019-03-22] MEDS ORDERED: NIFEDIPINE 30 MG TAB.ER.24 PO ONE (13:54)
[2019-03-22] MEDS: NIFEDIPINE 30 MG TAB.ER.24 PO SCH ×2 (13:57→23:09)
[2019-03-22] MEDS: OXYCODONE-ACETAMINOPHEN 5-325 MG TABLET PO PRN ×2 (16:02→20:48)
[2019-03-22] MEDS: SIMETHICONE 80 MG TAB.CHEW PO PRN ×2 (16:03→23:56)
[2019-03-22] MEDS ORDERED: LABETALOL HCL 200 MG TABLET PO ONE (22:30)
[2019-03-22 23:04] LABS: ABSOLUTE EOSINOPHILS # (AUTO) 0.1 10^3/uL (0.0-0.6); ABSOLUTE LYMPHOCYTES (AUTO) 1.2 10^3/uL (0.5-4.7); ABSOLUTE MONOCYTES (AUTO) 1.2 10^3/uL (0.1-1.4); ABSOLUTE NEUT (AUTO) 13.5 10^3/uL (1.7-8.2); BASOPHILS % (AUTO) 0.3 % (0-2); EOSINOPHILS % (AUTO) 0.3 % (0-6); HEMATOCRIT 35.7 % (36.0-47.0); HEMOGLOBIN 11.5 g/dL (12.0-15.5); LYMPHOCYTES % (AUTO) 7.3 % (13-45); MEAN CORPUSCULAR HEMOGLOBIN 25.6 pg (27.0-33.4); MEAN CORPUSCULAR HGB CONC 32.3 g/dL (32.0-36.0); MEAN CORPUSCULAR VOLUME 79 fl (80-97); MONOCYTES % (AUTO) 7.5 % (3-13); PLATELET COUNT 265 10^3/uL (150-450); RED CELL DISTRIBUTION WIDTH 14.9 % (11.5-14.0); SEGMENTED NEUTROPHILS % (AUTO) 84.6 % (42-78); TOTAL CELLS COUNTED % (AUTO) 100 %; WHITE BLOOD COUNT 15.9 10^3/uL (4.0-10.5)
[2019-03-22 23:22] LABS: ALBUMIN 3.4 g/dL (3.5-5.0); ALKALINE PHOSPHATASE 104 U/L (38-126); ANION GAP 7 (5-19); ASPARTATE AMINO TRANSFERASE 30 U/L (14-36); BILIRUBIN,DIRECT 0.2 mg/dL (0.0-0.4); BILIRUBIN,TOTAL 0.4 mg/dL (0.2-1.3); BLOOD UREA NITROGEN 5 mg/dL (7-20); CARBON DIOXIDE 23 mmol/L (22-30); CHLORIDE 105 mmol/L (98-107); GLUCOSE 78 mg/dL (75-110); POTASSIUM 3.9 mmol/L (3.6-5.0); TOTAL PROTEIN 6.6 g/dL (6.3-8.2); URIC ACID 4.5 mg/dL (2.5-6.2)
[2019-03-22] MEDS ORDERED: ONDANSETRON HCL INJ/PF 4 MG/2 ML SDV IV PRN (23:42)
[2019-03-23] MEDS ORDERED: AMPICILLIN SOD/SULBACTAM 3 GM VIAL IV PRN
[2019-03-23] MEDS: OXYCODONE-ACETAMINOPHEN 5-325 MG TABLET PO PRN ×3 (02:23→22:32)
[2019-03-23] MEDS: IBUPROFEN 800 MG TABLET PO SCH ×3 (06:32→17:14)
[2019-03-23] MEDS: AMPICILLIN SODIUM/SULBACTAM NA 3 GM in NORMAL SALINE 100 ML IV SCH ×3 (06:34→17:14)
--- NOTE | 2019-03-23 08:50 | PDOC PROGRESS REPORT ---
Subjective-OB Progress Note for:: 03/23/19 Subjective: Passing very little gas rectally. Abdomen swollen. Physical Exam (OB) Vital Signs: Temp Pulse Resp BP Pulse Ox 98.4 F 104 H 12 132/74 H 99 03/23/19 07:19 03/23/19 07:19 03/23/19 07:19 03/23/19 07:19 03/23/19 07:19 Intake & Output 03/22/19 03/23/19 03/24/19 06:59 06:59 06:59 Intake Total 100 100 Output Total 3420 Balance -3320 100 - PIH/Pre-Eclampsia DTR's: 1 + Clonus: Negative Headache: Absent Epigastric Pain: No Visual Changes: No - Dressing Removed: No - optsite intact with scant shadow drainage Incision: Dressing Closure Type: opsite - Lochia Lochia Amount: Small 10-25 ml Lochia Color: Rubra/Red - Abdomen Description: Soft, Distended Hernia Present: No Bowel Sounds: Hypoactive Flatus Presence: Present Stool: No Fundal Description: Firm, Midline Fundal Height: u/u - u/2 Objective-Diagnostic Laboratory: 03/22/19 22:53 03/22/19 22:53 03/22/19 03/22/19 22:53 22:53 WBC 15.9 H RBC 4.50 Hgb 11.5 L Hct 35.7 L MCV 79 L MCH 25.6 L MCHC 32.3 RDW 14.9 H Plt Count 265 Seg Neutrophils % 84.6 H Lymphocytes % 7.3 L Monocytes % 7.5 Eosinophils % 0.3 Basophils % 0.3 Absolute Neutrophils 13.5 H Absolute Lymphocytes 1.2 Absolute Monocytes 1.2 Absolute Eosinophils 0.1 Absolute Basophils 0.0 Sodium 134.5 L Potassium 3.9 Chloride 105 Carbon Dioxide 23 Anion Gap 7 BUN 5 L Creatinine 0.72 Est GFR ( Amer) > 60 Est GFR (Non-Af Amer) > 60 Glucose 78 Uric Acid 4.5 Calcium 9.0 Total Bilirubin 0.4 AST 30 Alkaline Phosphatase 104 Total Protein 6.6 Albumin 3.4 L
[2019-03-23] MEDS: LABETALOL HCL 200 MG TABLET PO SCH ×2 (09:28→21:44)
[2019-03-23] MEDS: PRENATAL VITAMIN W DHA CAPSULE PO SCH (09:28)
[2019-03-23] MEDS: FUROSEMIDE 20 MG TABLET PO SCH (09:28)
[2019-03-23] MEDS: NIFEDIPINE 30 MG TAB.ER.24 PO SCH ×2 (09:28→21:44)
[2019-03-23] MEDS: DOCUSATE SODIUM 100 MG CAPSULE PO SCH ×2 (09:28→17:14)
[2019-03-24] MEDS: IBUPROFEN 800 MG TABLET PO SCH ×3 (00:32→12:28)
[2019-03-24] MEDS: AMPICILLIN SODIUM/SULBACTAM NA 3 GM in NORMAL SALINE 100 ML IV SCH ×2 (00:34→05:15)
--- NOTE | 2019-03-24 09:44 | PDOC DISCHARGE SUMMARY ---
Final Diagnosis Discharge Date: 03/24/19 - POD #3, Primary , s/p Magnessium Sulfate and IOL for Pre-eclampsia. Doing well, no complaints today. A+, rubella Immune, - Final Diagnosis (1) Normal course Is this a current diagnosis for this admission?: Yes (2) Arrest of dilation, delivered, current hospitalization Is this a current diagnosis for this admission?: Yes (3) Pre-eclampsia Is this a current diagnosis for this admission?: Yes (4) Status post primary low transverse section Is this a current diagnosis for this admission?: Yes Discharge Data - Discharge Medication Prescriptions: Ibuprofen [Motrin 800 mg Tablet] 800 mg PO Q6 #60 tablet Nifedipine [Procardia XL 30 mg Tablet] 30 mg PO Q12 30 Days #60 tab.er.24 Oxycodone HCl/Acetaminophen [Percocet 5-325 mg Tablet] 1 tab PO Q4HP PRN #30 tablet PRN Reason: Pain Scale Of 3 Home Medications: Vits96/Iron Fum/Folic [ Tablet] 1 each PO DAILY 03/18/19 Ibuprofen [Motrin 800 mg Tablet] 800 mg PO Q6 #60 tablet 03/24/19 Nifedipine [Procardia XL 30 mg Tablet] 30 mg PO Q12 30 Days #60 tab.er.24 03/24/19 Oxycodone HCl/Acetaminophen [Percocet 5-325 mg Tablet] 1 tab PO Q4HP PRN #30 tablet 03/24/19 Reason(s) for Admission: Induction of Labor, Obstetric Complications Procedures: NST, Ultrasound Intrapartum Procedure(s): : Low Cervical, Transverse - Diagnosis Test Laboratory: Temp Pulse Resp BP Pulse Ox 97.8 F 88 16 136/85 H 95 03/24/19 07:28 03/24/19 07:28 03/24/19 07:28 03/24/19 07:28 03/24/19 07:28 03/21/19 03/21/19 03/22/19 05:45 06:14 06:55 RBC 4.45 3.80 Hgb 11.5 L 9.9 L Hct 35.5 L 30.4 L Urine Opiates Screen NEGATIVE 03/22/19 22:53 RBC 4.50 Hgb 11.5 L Hct 35.7 L Urine Opiates Screen - Discharge information/Instructions Discharge Activity: Activity As Tolerated, No Driving, No Lifting Over 10 Pounds, Pelvic Rest Discharge Diet: As Tolerated, Regular Disposition: HOME, SELF-CARE Follow up with: [facility] in: 1, Weeks - for BP and incision check
[2019-03-24] MEDS: PRENATAL VITAMIN W DHA CAPSULE PO SCH (10:05)
[2019-03-24] MEDS: LABETALOL HCL 200 MG TABLET PO SCH (10:06)
[2019-03-24] MEDS: DOCUSATE SODIUM 100 MG CAPSULE PO SCH (10:09)
[2019-03-24] MEDS: FUROSEMIDE 20 MG TABLET PO SCH (10:10)
[2019-03-24] MEDS: NIFEDIPINE 30 MG TAB.ER.24 PO SCH (10:11)
[2019-03-24] MEDS: OXYCODONE-ACETAMINOPHEN 5-325 MG TABLET PO PRN (10:17)
[2019-03-24 12:34] VITALS: BP 136/88
== END 2019-03-24 12:50 | disposition home or self-care (01) | DRG 788 ==
LOC: LC 05:23 → LR 05:57 → 2N 03-22 14:15 → LR 03-22 14:15
PROVIDERS: ADMIT Obstetrics & Gynecology; ATTEND Obstetrics & Gynecology
PROC: 10D00Z1 Extraction of Products of Conception, Low, Open Approach (ICD-10-PCS; principal; 2019-03-21)
PROC: 4A1HX4Z Monitoring of Products of Conception, Cardiac Electrical Activity, External Approach (ICD-10-PCS; 2019-03-21)
DX: O14.93 Unspecified pre-eclampsia, third trimester (principal); O36.63X0 Maternal care for excessive fetal growth, third trimester, not applicable or unspecified; O99.824 Streptococcus B carrier state complicating childbirth; O32.4XX0 Maternal care for high head at term, not applicable or unspecified; Z3A.40 40 weeks gestation of pregnancy; Z37.0 Single live birth; O62.1 Secondary uterine inertia
CPT/HCPCS: 1961; 36415; 80053; 80307; 81005; 82570; 83615; 84156; 84550; 85025; 85027; 86592; 86850; 86900; 86901; 87040; 87086; 94760; 94799; J0131; J0295; J0360; J0690; J1170; J1885; J1940; J2250; J2270; J2370; J2405; J2540; J2550; J2590; J2704; J3010; J3475; J3490; J7050; J7060